=== PATIENT | female | born 1985 | race Caucasian/White ===

== ENCOUNTER 2017-04-15 08:28 | Emergency (ER) | payer MEDICAID, OTHER ==
[~2017-04-15] VITALS: Ht 154.9 cm; Wt 75.0 kg
[~2017-04-15 08:28] MED LIST: BENZ100 PO; FLUT1SPR9; WAL-10TA2 PO; ZITH250T PO
[2017-04-15 08:32] VITALS: BP 122/66; PULSE 109; RESP 18; TEMP 98.6; O2SAT 96
--- NOTE | 2017-04-15 09:08 | RADRPT ---
EXAM DATE/TIME: 04/15/2017 08:56 [place] COMPARISON: No previous studies available for comparison. INDICATIONS : Cough, congestion, chest pains MEDICAL HISTORY : None. SURGICAL HISTORY : None. ENCOUNTER: Initial ACUITY: 4 - 6 days PAIN SCORE: 7/10 LOCATION: Bilateral chest FINDINGS: PA and lateral views of the chest demonstrate the lungs to be symmetrically aerated without evidence of mass, infiltrate or effusion. The cardiomediastinal contours are unremarkable. Osseous structure s are intact. CONCLUSION: Normal examination. Kang Mcduffie MD on April 15, 2017 at 9:06 Board Certified Radiologist. This report was verified electronically.
[2017-04-15] MEDS ORDERED: ZITHTAB PO (09:09)
--- NOTE | 2017-04-15 09:09 | PD ---
HPI Chief Complaint: Cold / Flu Symptoms Time Seen by Provider: 08:37 Travel History International Travel<30 days: No Contact w/Intl Traveler<30days: No Traveled to known affect area: No History of Present Illness HPI Patient is a 31-year-old female who comes in complaining of cough and congestion. She says is going on for 5 days and is not getting better. She has had runny nose as well as sore throat. She says she has occasional shortness of breath. She does have history of asthma, but says she has not required her albuterol. She is worried because her son was diagnosed with pneumonia, and she worries that she might have the same thing. She denies fever or chills. She has been taking [id number] cold and flu medication without relief. [facility] Past Medical History Asthma: Yes ( CHILD) Diminished Hearing: No Immunizations Current: Yes : 1 Para: 1 Past Surgical History Section: Yes (x 1) Gynecologic Surgery: Yes (c-sec x1) Social History Alcohol Use: Yes (socially) Tobacco Use: No Substance Use: No Allergies-Medications (Allergen,Severity, Reaction): Coded Allergies: No Known Allergies (Verified , 04/15/17) Reported Meds & Prescriptions Reported Meds & Active Scripts Active No Active Prescriptions or Reported Medications Review of Systems General / Constitutional: No: Fever, Chills HENT: Positive: Sore Throat, Congestion Cardiovascular: No: Chest Pain or Discomfort Respiratory: Positive: Cough Gastrointestinal: No: Nausea, Vomiting Musculoskeletal: No: Myalgias, Edema Skin: No Rash, No Itching Neurologic: No: Weakness, Dizziness Physical Exam Narrative GENERAL: Awake and alert, in no acute distress. SKIN: Focused skin assessment warm/dry. HEAD: Atraumatic. Normocephalic. EYES: Pupils equal and round. No scleral icterus. ENT: Mucous membranes pink and moist. No tonsillar swelling or exudates. CARDIOVASCULAR: Regular rate and rhythm. No murmur appreciated. RESPIRATORY: No accessory muscle use. Clear to auscultation. Breath sounds equal bilaterally. MUSCULOSKELETAL: No obvious deformities. No clubbing. No cyanosis. No edema. NEUROLOGICAL: Awake and alert. No obvious cranial nerve deficits. Motor grossly within normal limits. Normal speech. Data Data Last Documented VS Vital Signs Date Time Temp Pulse Resp B/P (MAP) Pulse Ox O2 Delivery O2 Flow Rate FiO2 04/15/17 08:32 98.6 109 18 122/66 (84) 96 Orders Orders Chest, Pa & Lat (04/15/17 ) [facility] Medical Decision Making Medical Screen Exam Complete: Yes Emergency Medical Condition: Yes Medical Record Reviewed: Yes Differential Diagnosis Pneumonia versus bronchitis versus URI Narrative Course Patient is a 31-year-old female comes in complaining of cough and congestion. She says she is worried about having pneumonia. Exam shows no acute abnormalities. Chest expiratory performed shows no acute abnormalities. However, based on symptoms and symptom duration as well as exposure to pneumonia , she'll be given a prescription for azithromycin. She is advised follow-up with her primary care doctor. Advised to return to the ED as needed for any worsening symptoms. Diagnosis Primary Impression: Cough Patient Instructions: Acute Cough (ED), General Instructions Additional Instructions: Take all of your antibiotic. Continue to use over the counter decongestants. Follow-up with a primary care doctor. Return to the ED as needed for any worsening symptoms. Scripts Azithromycin (Zithromax Z-Ravi) 250 Mg Dspk 250 MG PO DIRECTED for Infection, #1 DSPK 0 Refills 500 MG (2 tabs) day 1, then 1 tab days 2-5. Prov: Maya Lindsey MD 04/15/17 Disposition: 01 DISCHARGE HOME Condition: Stable Maya Lindsey MD Apr 15, 2017 09:09
== END 2017-04-15 09:20 | disposition home or self-care (01) ==
LOC: PHEFT 08:28
DX: R05 Cough (principal); J02.9 Acute pharyngitis, unspecified; J45.909 Unspecified asthma, uncomplicated
CPT/HCPCS: 71020; 99283

== ENCOUNTER 2017-06-15 13:58 | Emergency (ER) | payer MEDICAID ==
[~2017-06-15] VITALS: Ht 154.9 cm; Wt 75.7 kg
[~2017-06-15 13:58] MED LIST changes: -BENZ100 PO; -FLUT1SPR9; -WAL-10TA2 PO; -ZITH250T PO; +ZITHTAB PO
[2017-06-15 14:04] VITALS: BP 149/91; PULSE 101; RESP 16; TEMP 97.8; O2SAT 98
[2017-06-15] MEDS ORDERED: AMOX875T PO (14:20)
[2017-06-15] MEDS ORDERED: FLUT1SPR5 EACH NARE (14:20)
--- NOTE | 2017-06-15 14:24 | PD ---
HPI Chief Complaint: Cold / Flu Symptoms Time Seen by Provider: 14:16 Travel History International Travel<30 days: No Contact w/Intl Traveler<30days: No Traveled to known affect area: No History of Present Illness HPI 31-year-old female presents the emergency department with 2 week history of upper respiratory infection symptoms which is now settled in the sinuses with postnasal drip and sore throat. Her cough is irritating and worse at night. She denies chest pain or chest congestion. No fevers or chills. She denies ear pain. Patient denies nausea, vomiting, or heartburn. She has no known drug allergies. PFSH Past Medical History Asthma: Yes ( CHILD) Diminished Hearing: No Immunizations Current: Yes Influenza Vaccination: No ?: Not LMP: 05/14/17 : 1 Para: 1 Past Surgical History Section: Yes (x 1) Gynecologic Surgery: Yes (c-sec x1) Social History Alcohol Use: Yes (socially) Tobacco Use: No Substance Use: No Allergies-Medications (Allergen,Severity, Reaction): Coded Allergies: No Known Allergies (Verified Adverse Reaction, Unknown, 06/15/17) Reported Meds & Prescriptions Reported Meds & Active Scripts Active Flonase Nasal [place] (Fluticasone Nasal [place]) 50 Mcg/Act [place] 100 Mcg EACH NARE BID Amoxicillin 875 Mg Tab 875 Mg PO BID 10 Days Review of Systems Except as stated in HPI: all other systems reviewed are Neg General / Constitutional: No: Fever Eyes: No: Visual changes HENT: Positive: Headaches, Sore Throat, Rhinitis, Rhinorrhea, Congestion, No: Vertigo, Lightheadedness, Nosebleed, Neck Stiffness, Neck Pain, Dental Difficulties, Ear Discharge, Earache Cardiovascular: No: Chest Pain or Discomfort Respiratory: Positive: Cough, No: Shortness of Breath, Wheezing, Sneezing Gastrointestinal: No: Nausea, Vomiting, Diarrhea, Abdominal Pain Genitourinary: No: Dysuria Musculoskeletal: No: Pain Skin: No Rash Neurologic: No: Weakness Psychiatric: No: Depression Endocrine: No: Polydipsia Hematologic/Lymphatic: No: Easy Bruising Physical Exam Narrative GENERAL: Patient appears no acute distress. SKIN: Warm and dry. Normal color. Normal turgor. HEAD: Atraumatic. Normocephalic. EYES: Pupils equal and round. No scleral icterus. No injection or drainage. ENT: No nasal bleeding or discharge. Mucous membranes pink and moist. Mild to moderate sinus tenderness with palpation and percussion in both frontal and maxillary sinuses. TMs are dull bilaterally with serous effusions present without injection. Posterior pharynx is mildly erythematous, cobblestoning is present, and postnasal drip is noted. NECK: Trachea midline. Supple and nontender. CARDIOVASCULAR: Regular rate and rhythm. RESPIRATORY: No accessory muscle use. Clear to auscultation. Breath sounds equal bilaterally. MUSCULOSKELETAL: Extremities without clubbing, cyanosis, or edema. No obvious deformities. NEUROLOGICAL: Awake and alert. No obvious cranial nerve deficits. Motor grossly within normal limits. Five out of 5 muscle strength in the arms and legs. Normal speech. PSYCHIATRIC: Appropriate mood and affect; insight and judgment normal. Data Data Last Documented VS Vital Signs Date Time Temp Pulse Resp B/P (MAP) Pulse Ox O2 Delivery O2 Flow Rate FiO2 06/15/17 14:04 97.8 101 16 149/91 (110) 98 MDM Medical Decision Making Medical Screen Exam Complete: Yes Emergency Medical Condition: Yes Differential Diagnosis Upper respiratory infection. Sinusitis. Postnasal drip. Cough. Narrative Course Patient is treated with amoxicillin 875 twice a day 10 days. Patient is given Flonase nasal spray 2 sprays each nostril daily. Patient is to use the cough medicine of choice as needed. Work note is given for today. Patient follow up if symptoms do not improve or worsen as needed. Diagnosis Primary Impression: Sinusitis Additional Impression: Post-nasal drip Referrals: Primary Care Physician Patient Instructions: General Instructions, Rhinosinusitis (GEN) Departure Forms: Work Release Enter return to work date: Jun 16, 2017 Additional Instructions: Patient is treated with amoxicillin 875 twice a day 10 days. Patient is given Flonase nasal spray 2 sprays each nostril daily. Patient is to use the cough medicine of choice as needed. Work note is given for today. Patient follow up if symptoms do not improve or worsen as needed. Med/Other Pt SpecificInfo: Prescription(s) given Scripts Fluticasone Nasal [place] (Flonase Nasal [place]) 50 Mcg/Act [place] 100 MCG EACH NARE BID for Allergies, #1 BOTTLE 0 Refills Prov: Suman mSith MD 06/15/17 Amoxicillin (Amoxicillin) 875 Mg Tab 875 MG PO BID for Infection for 10 Days, #20 TAB 0 Refills Prov: Suman Smith MD 06/15/17 Disposition: 01 DISCHARGE HOME Condition: Stable Zander Navarro Jun 15, 2017 14:24
== END 2017-06-15 14:38 | disposition home or self-care (01) ==
LOC: PHEFT 13:58
DX: J32.9 Chronic sinusitis, unspecified (principal)
CPT/HCPCS: 99284

== ENCOUNTER 2017-10-07 10:34 | Emergency (ER) | payer MEDICAID ==
[~2017-10-07] VITALS: Ht 154.9 cm; Wt 71.3 kg
[~2017-10-07 10:34] MED LIST changes: +AMOX875T PO; +FLUT1SPR5 EACH NARE; -ZITHTAB PO
[2017-10-07 10:46] VITALS: BP 138/87; PULSE 103; RESP 16
[2017-10-07] MEDS ORDERED: AUGM875T3 PO (11:12)
[2017-10-07] MEDS ORDERED: FLUT1SPR5 EACH NARE (11:12)
--- NOTE | 2017-10-07 11:12 | PD ---
HPI Chief Complaint: Cold / Flu Symptoms Time Seen by Provider: 10:57 Travel History International Travel<30 days: No Contact w/Intl Traveler<30days: No Traveled to known affect area: No History of Present Illness HPI This is a 31-year-old female here with sinus pain and pressure 2 weeks. She reports mucopurulent nasal discharge. History of sinus infections in the past with similar symptoms. No fever chills. The severity is moderate. No aggravating or alleviating factors. PFSH Past Medical History Asthma: Yes ( CHILD) Diminished Hearing: No Respiratory: Yes (asthma as a child) Immunizations Current: Yes Tetanus Vaccination: Unknown Influenza Vaccination: Yes ?: Not LMP: 10/02/17 : 1 Para: 1 Past Surgical History Section: Yes (x 1) Gynecologic Surgery: Yes (c-sec x1) Social History Alcohol Use: Yes (socially) Tobacco Use: No Substance Use: No Allergies-Medications (Allergen,Severity, Reaction): Coded Allergies: No Known Allergies (Verified Adverse Reaction, Unknown, 10/07/17) Reported Meds & Prescriptions Reported Meds & Active Scripts Active Review of Systems Except as stated in HPI: all other systems reviewed are Neg General / Constitutional: No: Fever Eyes: No: Visual changes HENT: Positive: Congestion, Other (Sinus pain) Cardiovascular: No: Chest Pain or Discomfort Respiratory: No: Shortness of Breath Gastrointestinal: No: Abdominal Pain Physical Exam Narrative GENERAL: Alert and well-appearing 4-year-old female SKIN: Warm and dry. HEAD: Normocephalic. EYES: No injection or drainage. Ear/nose/throat: + Tenderness to the frontal and maxillary sinuses. No pharyngeal erythema. No tonsillar hypertrophy or exudate. He was midline. Nares patent. NECK: Supple Data Data Last Documented VS Vital Signs Date Time Temp Pulse Resp B/P (MAP) Pulse Ox O2 Delivery O2 Flow Rate FiO2 10/07/17 10:46 103 16 138/87 (104) MDM Medical Decision Making Medical Screen Exam Complete: Yes Emergency Medical Condition: Yes Differential Diagnosis Sinusitis, allergic rhinitis, URI Narrative Course 31-year-old female here with sinusitis. She will be treated with Augmentin and Flonase. Diagnosis Primary Impression: Sinusitis Qualified Codes: J32.0 - Chronic maxillary sinusitis Referrals: Primary Care Physician Additional Instructions: Medication as directed. Follow with her primary doctor. Scripts Fluticasone Nasal [place] (Flonase Nasal [place]) 50 Mcg/Act [place] 50 MCG EACH NARE BID for Allergies, #1 BOTTLE 0 Refills Prov: Pam Ortega 10/07/17 Amoxicillin-Clavulanate (Augmentin) 875-125 Mg Tab 1 TAB PO BID for Infection, #20 TAB 0 Refills Prov: Pam Ortega 10/07/17 Disposition: 01 DISCHARGE HOME Condition: Stable Pam Ortega Oct 07, 2017 11:12
== END 2017-10-07 11:22 | disposition home or self-care (01) ==
LOC: PHEFT 10:34
DX: J32.9 Chronic sinusitis, unspecified (principal); J45.909 Unspecified asthma, uncomplicated
CPT/HCPCS: 99283